=== PATIENT | female | born 2005 | race African-American/Black ===

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

== ENCOUNTER 2025-01-22 10:43 | Outpatient (REF) | payer MEDICAID, SELFPAY ==
--- OUTSIDE RECORDS SUMMARY | 2025-01-22 12:06 | XMS_ITS | Encounter Summary ---
Author Organization [facility] Address [address] [place] [address] Care Team Providers Care Gas Derrick Operator Name Role Phone Ashley Bajwa NP Primary Care Provider [phone] Reason for Visit * Reason Onset Date Comments Chart Prep 01/11/2025 Encounter Details Date Type Department Care Team ([facility] st Contact Info) Description 01/11/2025 Telephone [facility] [address] [place], [place] [phone] Ila Patel MA Chart Prep Social History Tobacco Use Types Packs/Day Years Used Date Smoking Tobacco: Never Smokeless Tobacco: Never Alcohol Use Standard Drinks/Week Comments Never 0 (1 standard drink = 0.6 oz pur e alcohol) Depression Answer Date Recorded Patient Health Questionnaire-9 Score 0 07/29/2023 Depression Answer Date Recorded Patient Health Questionnaire-2 Score 0 07/29/2023 Comments No Sex and Gender Information Value Date Recorded Sex Assigned at Female 09/28/2022 10:19 AM EDT Legal Sex Female 10:19 AM EDT Gender Identity Female 09/28/2022 10:19 AM EDT Sexual Orientation Bisexual 02/10/2024 2: 00 PM EDT documented as of this encounter Miscellaneous Notes * Telephone Encounter - Ila Patel MA - 01/11/2025 1:48 PM EST Chart Prep Labs: done Images: not done Vaccines due: Covid, PCV20, Flu Referrals: none Screenings: STI screening, HIV, Hep C Overdue care gaps: SDOH, PHQ-9, Fluoride documented in this encounter Plan of Treatment Not on file documented as of this encounter Visit Diagnoses Not on filedocumented in this encounter Additional Health Concerns Assessment Noted Time PHQ-9 Depression Total Score: 0 07/29/20 23 5:24 PM EDT documented as of this encounter Care Teams Gas Derrick Operator Relationship Specialty Start Date End Date Ashley Bajwa NP [address] [place] [address] PCP - General Family Medicine 11/15/24 documented as of this encounter
--- OUTSIDE RECORDS SUMMARY | 2025-01-22 12:06 | XMS_ITS | Encounter Summary ---
Author Organization [employer] [facility] Address [address] 7[address] [place] [address] Care Team Providers Care Montessori Teacher Name Role Phone Ashley Bajwa NP Primary Care Provider [phone] Reason for Visit * Reason Comments Pre-visit Planning SDOH unable to reach , number disconnected Encounter Details Date Type Department Care Team ([facility] Contact Info) Description 01/11/2025 Patient Outreach [facility] [address] [place], [place] [phone] Ashley Bajwa, KIRILL [address] [place] [address] Pre-visit Planning (SDOH unable to reach, number disconnected) Social History Tobacco Use Types Packs/Day Years [...] PM EDT documented as of this encounter Progress Notes * Nell Umanzor - 01/11/2025 9:57 AM EST CC Nell Shook placed outbound call to patient to complete pre-visit planning. No answer at this time. Patient name and were not confirmed. CC unable to leave a message due to number not in service documented in this encounter Plan of Treatment Not on file documented as of this encounter Visit Diagnoses Not on filedocumented in this encounter Additional Health Concerns Assessment Noted Time PHQ-9 Depression Total Score: 0 07/29/20 23 5:24 PM EDT documented as of this encounter Care Teams Montessori Teacher Relationship Specialty Start Date End Date Ashley Bajwa NP [address] [place] [id number] PCP - General Family Medicine 11/15/24 documented as of this encounter
--- OUTSIDE RECORDS SUMMARY | 2025-01-22 12:06 | XMS_ITS | Encounter Summary ---
Author Organization [employer] [facility] Address [address] [place] [address] Care Team Providers Care Oracle Analyst Name Role Phone Ashley Bajwa NP Primary Care Provider [phone] Encounter Details Date Type Department Care Team (Latest Contact Info) Description 01/22/2025 Travel Social History Tobacco Use Types Packs/Day Years Used Date Smoking Tobacco: Never Smokeless Tobacco: Never Alcohol Use Standard Drinks/Week Comments Never 0 (1 standard drink = 0.6 oz pur e alcohol) Depression Answer Date Recorded Patient Health Questionnaire-9 Score 0 01/22/2025 Patient Health Questionnaire-9 Score 0 01/22/2025 Last PHQ-9: Questionnaire Data Not on file 0 01/22/2025 Housing Stability Answer Date Recorded What is your housing situation today? I have zeus [place] 01/22/[address] you li ve. Do you have problems with any of the following? None of the above 01/22/2025 Food Insecurity Answer Date Recorded Within the past 12 months, y ou worried that your food would run out before you got money to buy more: Never True 01/22/2025 Within the past 12 months,th e food you bought just didn't last and you didn't have enough money to get more: Never True Transportation Answer Date Recorded In the past 12 months, has l ack of transportation kept you from medical appts, meetings, work or from getting things needed for daily living? No 01/22/2025 Utilities Answer Date Recorded In the past 12 months, has t he electric, gas, oil or water company threatened to shut off services in your home? No 01/22/2025 Depression Answer Date Recorded Patient Health Questionnaire-2 Score 0 01/22/2025 Internet Access Answer Date Recorded Internet Access Q1 No 01/22/2025 Internet Access Q2 Internet/Wi-Fi access is not available where I live 01/22/2025 Comments No Sex and Gender Information Value Date Recorded Sex Assigned at Female 09/28/2022 10:19 AM EDT Legal Sex Female 10:19 AM EDT Gender Identity Female 09/28/2022 10:19 AM EDT Sexual Orientation Bisexual 02/10/2024 2: 00 PM EDT documented as of this encounter Plan of Treatment Not on file documented as of this encounter Visit Diagnoses Not on filedocumented in this encounter Additional Health Concerns Assessment Noted Time PHQ-9 Depression Total Score: 0 01/22/20 25 10:41 AM EST documented as of this encounter Care Teams Oracle Analyst Relationship Specialty Start Date End Date Ashley Bajwa NP [address] [place] [address] PCP - General Family Medicine 11/15/24 documented as of this encounter
--- OUTSIDE RECORDS SUMMARY | 2025-01-22 12:06 | XMS_ITS | Encounter Summary ---
Author Organization [facility] Address [address] [place] [address] 7t [place] [address] Care Team Providers Care Aircraft Mechanic Structures Name Role Phone Ashley Bajwa NP Primary Care Provider [phone] Reason for Referral * Consultation (Routine) - Pending Review Specialty Diagnoses / Procedures Referred By Angel thornton Referred To Contact Allergy Diagnoses Tree nut allergy Ashley Bajwa NP [address] [place] [address] Phone: tel: fax: Referral ID Status Reason Start Date Expiration Date Visits Requested Visits Authorized [id number] Pending Review Specialty Services Required 01/22/2025 01/22/2026 1 1 Reason for Visit * Reason Comments Transfer Pt Encounter Details Date Type Department Care Team ([facility] st Contact Info) Description 01/22/2025 9:45 AM EST Office Visit [facility] [address] [place], [place] [phone] Ashley Bajwa NP [address] [place] [address] Exercise-induced asthma (Primary Dx); Healthcare maintenance; Nausea and vomiting, unspecified vomiting type; Exposure to communicable disease; Peanut allergy; Hypovitaminosis D; Tree nut allergy; Dietary counseling; Exercise counseling Social History Tobacco Use Types Packs/Day Years [...] PM EDT documented as of this encounter Last Filed Vital Signs Vital Sign Reading Time Taken Comments Blood Pressure 129/79 01/22/2025 9:52 AM EST Pulse 109 01/22/2025 9:52 AM EST Temperature 36.7 ??C (98 ??F) 01/22/2025 9:52 AM EST Respiratory Rate 16 01/22/2025 9:52 AM EST Oxygen Saturation 99% 01/22/2025 9:52 AM EST Inhaled Oxygen Concentration - - Weight 77.3 kg (170 lb 6.4 oz) 01/22/2025 9:52 A M EST Height - - Body Mass Index 33.28 03/23/2024 11:12 AM EDT documented in this encounter Progress Notes * Ashley Bajwa, JOINER - 01/22/2025 9:45 AM EST Subjective: Karla Tejada is a 19 y.o. female who presents to the office for a transfer patient visit. 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 No pertinent surgical history. No family history on file. 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 Allergies Allergen Reactions Peanut Allergen Powder-Dnfp Angioedema Review of Systems Constitutional: Negative for activity change and appetite change. Respiratory: Negative for apnea, chest tightness and shortness of breath. Gastrointestinal: Positive for nausea and vomiting. Negative for abdominal pain, anal bleeding, blood in stool and constipation. Genitourinary: Negative for frequency and genital sores. Musculoskeletal: Negative for arthralgias. Psychiatric/Behavioral: Negative for agitation. Vitals: 01/22/25 0952 BP: 129/79 Pulse: 109 Resp: 16 Temp: 98 ??F (36.7 ??C) TempSrc: Oral SpO2: 99% Weight: 170 lb 6.4 oz (77.3 kg) Physical Exam Vitals reviewed. Constitutional: Appearance: She is obese. HENT: Head: Normocephalic and atraumatic. Nose: Nose normal. Eyes: Conjunctiva/sclera: Conjunctivae normal. Cardiovascular: Rate and Rhythm: Normal rate and regular rhythm. Pulmonary: Effort: Pulmonary effort is normal. Breath sounds: Normal breath sounds. Abdominal: Palpations: Abdomen is soft. Musculoskeletal: Cervical back: Normal range of motion and neck supple. Neurological: General: No focal deficit present. Mental Status: She is alert. Problem List Items Addressed This Visit Exercise-induced asthma - Primary Current Assessment & Plan Stable, bhavesh renewed Relevant Medications albuterol 108 (90 Base) MCG/ACT inhaler Peanut allergy Relevant Medications EPINEPHrine (Epipen) 0.3 MG/0.3ML injection syringe Healthcare maintenance Relevant Orders Chlamydia/N. Gonorrhoeae RNA, TMA, Urogenitial Nausea and vomiting Current Assessment & Plan Celiac panel ordered Unclear etiology, prn zofran in interim, no consitutional or lower gi symptoms associated with these symptoms If no improvement consider GI referral Possibly secondary to nexplanon, though rare side effect if so Software Intern called for their opinion Relevant Medications ondansetron (Zofran) 8 MG tablet Other Relevant Orders Celiac Disease Comprehensive Panel Exposure to communicable disease Relevant Orders HIV-1/2 Antigen and Antibodies, Fourth Generation, with Reflexes Hepatitis C Antibody with Reflex to HCV, RNA, Quantitative, Real-Time PCR RPR (Monitor) with Reflex to Titer Hypovitaminosis D Relevant Medications cholecalciferol (Vitamin D-3) 125 MCG (5000 UT) capsule Tree nut allergy Current Assessment & Plan Referral to allergy Relevant Orders Referral to Allergy Other Visit Diagnoses Dietary counseling Exercise counseling Routine Screening and Health Maintenance Current Outpatient Medications Medication Sig Dispense Refill albuterol (2.5 MG/3ML) 0.083% nebulizer solution Take 3 mL (2.5 mg) by nebulization every 6 (six) hours if needed for wheezing. 75 mL 11 albuterol 108 (90 Base) MCG/ACT inhaler 2 puff by inhalation route every 4 to 6 hours prn shortnessof breath or wheezing 36 g 1 cholecalciferol (Vitamin D-3) 125 MCG (5000 UT) capsule 1 caps po once a day 90 capsule 1 EPINEPHrine (Epipen) 0.3 MG/0.3ML injection syringe use as directed for allergic reaction to peanuts 2 each 1 ibuprofen 200 MG tablet 1 tablet by oral route 4 times per day prn pain ondansetron (Zofran) 8 MG tablet Take 1 tablet (8 mg) by mouth every 12 (twelve) hours if needed for nausea or vomiting for up to 15 days. 30 tablet 0 Spacer/Aero-Holding Chambers (AeroChamber MV) inhaler Use as instructed for albuterol therapy 2 each 1 No current facility-administered medications for this visit. Immunization History Administered Date(s) Administered DT (pediatric) 05/11/2007 DTaP 2005, 02/02/2006, 05/11/2007, 03/13/2010 DTaP / Hep B / IPV 2005, 02/02/2006, 05/13/2006 HPV 9-Valent 06/26/2016, 02/22/2017 Hep A, Unspecified 05/11/2007 Hep A, ped/adol, 2 dose 05/11/2007, 03/13/2010 Hep B, Adolescent or Pediatric 2005, 2005, 02/02/2006 Hep B, Unspecified 2005 HiB, unspecified 2005, 02/02/2006, 05/13/2006, 05/11/2007 IPV 2005, 02/02/2006, 03/13/2010 Influenza injectable quadrivalent preservative free 10/13/2006, 07/19/2012, 01/13/2017 Influenza, IIV3, injectable 10/13/2006 MMR 10/13/2006, 03/13/2010 Meningococcal MCV4P ACYW-135 02/22/2017, 06/23/2022 Pfizer Covid-19 Vaccine 12+ 11/25/2021 Pfizer Covid-19 Vaccine 12+ avery-sucrose (Vasquez Cap) 12/30/2021 Pneumococcal Conjugate PCV 13 2005, 02/02/2006, 05/13/2006, 05/11/2007 Pneumococcal Conjugate PCV 7 2005, 02/02/2006, 05/13/2006, 05/11/2007 Tdap 02/22/2017 Varicella 10/13/2006, 03/13/2010 Yellow Fever 2005 documented in this encounter Miscellaneous Notes * Assessment & Plan Note - Ashley Bajwa NP - 01/22/2025 10:46 AM ESTAssociated Problem(s): Tree nut allergy Referral to allergy * Assessment & Plan Note - Ashley Bajwa NP - 01/22/2025 10:46 AM ESTAssociated Problem(s): Nausea and vomiting Celiac panel ordered Unclear etiology, prn zofran in interim, no consitutional or lower gi symptoms associated with these symptoms If no improvement consider GI referral Possibly secondary to nexplanon, though rare side effect if so Software Intern called for their opinion * Assessment & Plan Note - Ashley Bajwa NP - 01/22/2025 10:44 AM ESTAssociated Problem(s): Exercise-induced asthma bhavesh العلي renewed documented in this encounter Plan of Treatment Scheduled Orders Name Type Priority Associated Diagnoses Orde r Schedule Chlamydia/N. Gonorrhoeae RNA, TMA, Urogenitial Microbiology Routine Healthcare maintenance Ordered: 01/22/2025 Celiac Disease Comprehensive Panel Lab Routine Nausea and vomiting, unspecified vomiting type Expected: 01/22/2025, Expires: 01/22/2026 HIV-1/2 Antigen and Antibodies, Fourth Generation, with Reflexes Lab Routine Exposure to communicable disease Expected: 01/22/2025 (Approximate), Expires: 01/22/2026 Hepatitis C Antibody with Reflex to HCV, RNA, Quantitative, Real-Time PCR Lab Routine Exposure to communicable disease Expected: 01/22/2025, Expires: 01/22/2026 RPR (Monitor) with Reflex to??Titer Lab Routine Exposure to communicable disease Expected: 01/22/2025, Expires: 01/22/2026 Scheduled Referrals Name Type Priority Associated Diagnoses Orde r Schedule Referral to Allergy Outpatient Referral Routine Tree nut allergy Expected: 01/22/2025 (Approximate), Expires: 01/22/2026 documented as of this encounter Visit Diagnoses Diagnosis Exercise-induced asthma- Primary Exercise induced bronchospasm Healthcare maintenance Nausea and vomiting, unspecified vomiting type Exposure to communicable disease Contact with or exposure to unspecified communicable disease Peanut allergy Hypovitaminosis D Unspecified vitamin D deficiency Tree nut allergy Dietary counseling Dietary surveillance and counseling Exercise counseling documented in this encounter Additional Health Concerns Assessment Noted Time PHQ-9 Depression Total Score: 0 01/22/20 25 10:41 AM EST documented as of this encounter Care Teams Aircraft Mechanic Structures Relationship Specialty Start Date End Date Ashley Bajwa NP [address] [place] [id number] PCP - General Family Medicine 11/15/24 documented as of this encounter
--- OUTSIDE RECORDS SUMMARY | 2025-01-22 12:06 | XMS_ITS | Clinical Summary ---
Author Organization [employer] Address [address] [facility] 7[address] [place] [address] Care Team Providers Care Communications Advisor Name Role Phone Ashley Bajwa NP Primary Care Provider [phone] Allergies Active Allergy Reactions Criticality Noted Date Comments Peanut Allergen Powder-Dnfp Angioedema 07/29/20 23 Medications ibuprofen 200 MG tablet 1 tablet by oral route 4 times per day prn pain 06/20/20 20 Active Spacer/Aero-Ho lding Chambers (AeroChamber MV) inhalerIndicat ions:Exercise- induced asthma Use as instructed for albuterol therapy 2 each 1 07/29/20 23 Active ondansetron (Zofran) 8 MG tabletIndicati ons:Nausea and vomiting, unspecified vomiting type Take 1 tablet (8 mg) by mouth every 12 (twelve) hours if needed for nausea or vomiting for up to 15 days. 30 tablet 01/22/20 25 2024 Active EPINEPHrine (Epipen) 0.3 MG/0.3ML injection syringeIndicat ions:Peanut allergy use as directed for allergic reaction to peanuts 2 each 1 01/22/20 25 Active cholecalcifero l (Vitamin D-3) 125 MCG (5000 UT) capsuleIndicat ions:Hypovitam inosis D 1 caps po once a day 90 capsule 01/22/20 25 Active albuterol (2.5 MG/3ML) 0.083% nebulizer solution Take 3 mL (2.5 mg) by nebulization every 6 (six) hours if needed for wheezing. 75 mL 11 01/22/20 25 2025 Active albuterol 108 (90 Base) MCG/ACT inhalerIndicat ions:Exercise- induced asthma 2 puff by inhalation route every 4 to 6 hours prn shortness of breath or wheezing 36 g 1 01/22/20 25 Active albuterol 108 (90 Base) MCG/ACT inhalerIndicat ions:Exercise- induced asthma 2 puff by inhalation route every 4 to 6 hours prn shortness of breath or wheezing 36 g 1 07/29/20 23 2024 Discontinued(R eorder (will not trigger notification to Pharmacy)) EPINEPHrine (Epipen) 0.3 MG/0.3ML injection syringeIndicat ions:Peanut allergy use as directed for allergic reaction to peanuts 2 each 1 07/29/20 23 2024 Discontinued(R eorder (will not trigger notification to Pharmacy)) cholecalcifero l (Vitamin D-3) 125 MCG (5000 UT) capsuleIndicat ions:Hypovitam inosis D 1 caps po once a day 90 capsule 1 08/05/20 23 2024 Discontinued(R eorder (will not trigger notification to Pharmacy)) Active Problems Problem Noted Date Diagnosed Date Healthcare maintenance 01/22/2025 Nausea and vomiting 01/22/2025 Assessment & Plan (01/22/2025 10:46 AM EST): Celiac panel ordered Unclear etiology, prn zofran in interim, no consitutional or lower gi symptoms associated with these symptoms If no improvement consider GI referral Possibly secondary to nexplanon, though rare side effect if so Change Attendant called for their opinion Exposure to communicable disease 01/22/2025 Hypovitaminosis D 01/22/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 Assessment & Plan (01/22/2025 10:46 AM EST): Referral to allergy Vitamin D deficiency 07/29/2023 Peanut allergy 07/29/2023 Exercise-induced asthma 01/13/2017 Assessment & Plan (01/22/2025 10:44 AM EST): Stable, bhavesh renewed Resolved Problems Problem Noted Date Diagnosed Date Resolved Date Depressive disorder 07/29/2023 07/29/20 23 Encounters Date Type Department Care Team Description 01/22/2025 9:45 AM EST Office Visit [facility] MED[facility] [address] [place] [address] Ashley Bajwa NP Exercise-induced asthma (Primary Dx); Healthcare maintenance; Nausea and vomiting, unspecified vomiting type; Exposure to communicable disease; Peanut allergy; Hypovitaminosis D; Tree nut allergy; Dietary counseling; Exercise counseling 01/22/2025 Travel 01/11/2025 Telephone [facility] MEDICINE [address] [place] [address] Ila Patel MA Chart Prep 01/11/2025 Patient Outreach [facility] PEDS [address] [place] [address] Ashley Bajwa NP Pre-visit Planning ([facility] unable to reach, number disconnected) 11/15/2024 Telephone [facility] PEDIATRICS [address] [place] [address] Aimee Nuñez MA from Last 3 Months Immunizations Name Administration Dates Next Due DT (pediatric) 05/11/2007 DTaP 03/13/2010, 7,02/02/2006,11/12 DTaP / Hep B / IPV 05/13/2006,02/02/2006, 005 HPV 9-Valent 02/22/2017,06/26/2016 Hep A, Unspecified 05/11/2007 Hep A, ped/adol, 2 dose 03/13/2010,05/11/2007 Hep B, Adolescent or Pediatric 02/02/2006,2004,2005 Hep B, Unspecified 2005 HiB, unspecified 05/11/2007, 6,02/02/2006,11/12 IPV 03/13/2010,02/02/2006,2005 Influenza injectable quadriv alent preservative free 01/13/2017,07/19/2012,10/13/2006 Influenza, IIV3, injectable 10/13/2006 MMR 03/13/2010,10/13/2006 Meningococcal MCV4P ACYW-135 06/23/2022,02/23/20 17 Pneumococcal Conjugate PCV 13 05/11/2007 ,05/13/2006,02/02/2006,11/12 Pneumococcal Conjugate PCV 7 05/11/2007, 05/13/2006,02/02/2006,11/12 Tdap 02/22/2017 Varicella 03/13/2010,10/13/2006 Yellow Fever 2005 Social History Tobacco Use Types Packs/Day Years Used Date Smoking Tobacco: Never Smokeless Tobacco: Never Tobacco Cessation:Counseling Given: No Alcohol Use Standard Drinks/Week Comments Never 0 [...] Orientation Bisexual 02/10/2024 2: 00 PM EDT Last Filed Vital Signs Vital Sign Reading [...] oz) 01/22/2025 9:52 A M EST Height 152.4 cm (5') 03/23/2024 11:12 AM EDT Body Mass Index 33.28 03/23/2024 11:12 AM EDT Plan of Treatment Health Maintenance Due Date Last Done Comments HIV Screening 2005 Fluoride Varnish 05/09/2006 Pneumococcal Vaccine: Pediatrics (0 to 5 Years) and At-Risk Patients (6 to 49) Years) (1 of 1 - PPSV23) 2011 05/11/2007, 05/11/2007, 05/13/2006, Additional history exists Alcohol/Substance Use Screening 2017 Hepatitis C Screening 2023 COVID-19 Vaccine ( season) 2024 12/30/2021, 11/25/2021 Influenza Vaccine (#1) 2024 7, 07/19/2012, 10/13/2006, Additional history exists Chlamydia and Gonorrhea Screening 02/09/2025 02/10/2024, 02/07/2024 Family Planning (PISQ) 02/09/2025 02/10/2024 Depression Screening 01/22/2026 01/22/2025, 01/22/20 25 SDOH Screening 01/22/2026 01/22/2025 Tobacco Screening 01/22/2026 01/22/2025 DTaP/Tdap/Td Vaccines (7 - Td or Tdap) 02/22/2027 02/22/2017, 03/13/2010, 05/11/2007, Additional history exists Zoster Vaccines (1 of 2) 2055 RSV Patients and Patients Aged 60 years or older (1 - 1-dose 75+ series) 2080 Hepatitis B Vaccines Completed 05/13/2006, 02/02/2006, 02/02/2006, Additional history exists HIB Vaccines Completed 05/11/2007, 04/29, 02/02/2006, Additional history exists Hepatitis A Vaccines Completed 03/13/2010, 03/13/2010, 05/11/2007, Additional history exists IPV Vaccines Completed 03/13/2010, 04/29, 02/02/2006, Additional history exists MMR Vaccines Completed 03/13/2010, 10/13/2006 Varicella Vaccines Completed 03/13/2010, 10/13/2006 HPV Vaccines Completed 02/22/2017, 06/26/2016 Meningococcal Vaccine Completed 06/23/2022, 017 RSV under 20 months Aged Out No longe r eligible based on patient's age to complete this topic Rotavirus Vaccines Aged Out No longer eligible based on patient's age to complete this topic Procedures Procedure Name Priority Date/Time Associated Diagnosis Comments CHLAMYDIA/N. GONORRHOEAE RNA, TMA, UROGENITAL Routine 02/10/2024 1:53 PM EDT Nexplanon insertion from Last 3 Months or Most Recently Relevant to Health Maintenance Results * Chlamydia/N. Gonorrhoeae RNA, TMA, Urogenitial (02/10/2024 1:53 PM EDT) CT PCR NOT DETECTED Not Detect. [facility] Comment:A not detected test result does not exclude the possibilityof infection because test results can be affected byimproper specimen collection, concurrent antibiotic therapy,or the number of organisms in the specimen which may bebelow the sensitivity of the test. As with many diagnostictests, results from the Xpert CT/NG assay should beinterpreted in conjunction with other laboratory andclinical data available to the clinician.Xpert CT/NG performance has not been evaluated in patientsless than 14 years of age. The assay should not be used forthe evaluationof suspected sexual abuse or for other medico-legalindications. Additional testing is recommended in anycircumstance when false positive or false negative resultscould lead to adverse medical, social or psychologicalconsequences. NG PCR NOT DETECTED Not Detect. [facility] Comment:A not detected test result does not exclude the possibilityof infection because test results can be affected byimproper specimen collection, concurrent antibiotic therapy,or the number of organisms in the specimen which may bebelow the sensitivity of the test. As with many diagnostictests, results from the Xpert CT/NG assay should beinterpreted in conjunction with other laboratory andclinical data available to the clinician.Xpert CT/NG performance has not been evaluated in patientsless than 14 years of age. The assay should not be used forthe evaluationof suspected sexual abuse or for other medico-legalindications. Additional testing is recommended in anycircumstance when false positive or false negative resultscould lead to adverse medical, social or psychologicalconsequences. Urine (Urine, Random) 02/10/2024 1:53 PM EDT 02/10/2024 5:55 PM EDT Narrative [facility] - 02/11/2024 12:06 PM EDT Urine us Katerina Moseley MD LAB MICROBIOLOGY - GENERAL ORDERABLES Final Result Performing Organization Address City/State/[facility] Co de Phone Number [facility] [address] [place] [phone] from Last 3 Months or Most Recently Relevant to Health Maintenance Insurance [employer] Care Teams Communications Advisor Relationship Specialty Start Date End Date Ashley Bajwa NP [address] [place] [id number] PCP - General Family Medicine 11/15/24
--- OUTSIDE RECORDS SUMMARY | 2025-01-22 12:07 | XMS_ITS | Encounter Summary ---
Author Organization Note [facility] Address [address] [facility] 7t [place] [address] Care Team Providers Care [employer] Lead Name Role Phone Marcella Montilla MD Primary Care Provider [phone] Ashley Bajwa NP Primary Care Provider [phone] Encounter Details Date Type Department Care Team (Late st Contact Info) Description 02/17/2024 Orders Only [facility] [address] [place], [place] [phone] Marcella Montilla MD [address] [place], [place] [phone] Right hip pain (Primary Dx) Social History Tobacco Use Types Packs/Day Years [...] as of this encounter Plan of Treatment Scheduled Orders Name Type Priority Associated Diagnoses Orde r Schedule XR Pelvis 3+ Views Imaging Routine Right hip pain Expected: 02/17/2024, Expires: 02/16/2025 documented as of this encounter Visit Diagnoses Diagnosis Right hip pain- Primary Pain in joint, pelvic region and thigh documented in this encounter Additional Health Concerns Assessment Noted Time PHQ-9 Depression Total Score: 0 07/29/20 23 5:24 PM EDT documented as of this encounter Care Teams [employer] Lead Relationship Specialty Start Date End Date Marcella Montilla MD [address] [place] [address] PCP - General Pediatrics 12/24/16 11/14/24 Ashley Bajwa NP [address] [place] [address] PCP - General Family Medicine 11/15/24 documented as of this encounter
--- OUTSIDE RECORDS SUMMARY | 2025-01-22 12:07 | XMS_ITS | Encounter Summary ---
Author Organization [employer] [facility] Address [address] [place] [address] 7t [place] [address] Care Team Providers Care New Car Make Ready Mechanic Name Role Phone Marcella Montilla MD Primary Care Provider [phone] Ashley Bajwa NP Primary Care Provider [phone] Reason for Visit * Reason Onset Date Comments Appointment Request 01/26/2024 Encounter Details Date Type Department Care Team ([facility] st Contact Info) Description 01/26/2024 Telephone [facility] MEDICINE [address] [place], [place] [phone] Marcella Montilla MD [address] [place], [place] [phone] Appointment Request Social History Tobacco Use Types Packs/Day Years Used Date Smoking Tobacco: Never Smokeless Tobacco: Never Alcohol Use Standard Drinks/Week Comments Never 0 (1 standard drink = 0.6 oz pur e alcohol) Depression Answer Date Recorded Patient Health Questionnaire-9 Score 0 07/29/2023 Depression Answer Date Recorded Patient Health Questionnaire-2 Score 0 07/29/2023 Comments Unknown Sex and Gender Information Value Date Recorded Sex Assigned at Female 09/28/2022 10:19 AM EDT Legal Sex Female 10:19 AM EDT Gender Identity Female 09/28/2022 10:19 AM EDT Sexual Orientation Bisexual 02/10/2024 2: 00 PM EDT documented as of this encounter Miscellaneous Notes * Telephone Encounter - Cassi Josué - 01/26/2024 10:59 AM EST Tc from pt mom requesting appt with PCP to discuss control, please contact at [phone]. documented in this encounter Plan of Treatment Not on file documented as of this encounter Visit Diagnoses Not on filedocumented in this encounter Additional Health Concerns Assessment Noted Time PHQ-9 Depression Total Score: 0 07/29/20 23 5:24 PM EDT documented as of this encounter Care Teams New Car Make Ready Mechanic Relationship Specialty Start Date End Date Marcella Montilla MD [address] [place] [address] PCP - General Pediatrics 12/24/16 11/14/24 Ashley Bajwa NP [address] [place] [address] PCP - General Family Medicine 11/15/24 documented as of this encounter
--- OUTSIDE RECORDS SUMMARY | 2025-01-22 12:07 | XMS_ITS | Encounter Summary ---
Author Organization [employer] [facility] Address [address] [facility] [address] [place] [address] Care Team Providers Care Ground Wood Supervisor Name Role Phone Marcella Montilla MD Primary Care Provider [phone] Ashley Bajwa NP Primary Care Provider [phone] Reason for Visit * Reason Comments Med Change Request Encounter Details Date Type Department Care Team ([facility] st Contact Info) Description 08/05/2023 Refill [facility] [address] [place], [place] [phone] Marcella Montilla MD [address] [place], [place] [phone] Hypovitaminosis D Social History Tobacco Use Types Packs/Day Years [...] encounter Miscellaneous Notes * Telephone Encounter - Stacey Juarez RN - 08/05/2023 2:58 PM EDT Telephone call to parent and advised mom of message. Mom also requesting Medication Form for Epipenand Albuterol for school.Advised mom will forward message to Dr. Montilla, mom verbalizes understanding. * Telephone Encounter - Stacey Juarez RN - 08/05/2023 2:54 PM EDT ----- Message from Marcella Montilla MD sent at 08/05/2023 2:19 PM EDT ----- Labs reviewed, WNL, except for low vit D. Rx for vit D was sent to the pharmacy on file. Also, please check with mom about the meningitis Bexsero vaccine for college , if they decided to have it. F/uin 6 mo or sooner if problems or concerns. documented in this encounter Plan of Treatment Not on file documented as of this encounter Visit Diagnoses Diagnosis Hypovitaminosis D Unspecified vitamin D deficiency documented in this encounter Additional Health Concerns Assessment Noted Time PHQ-9 Depression Total Score: 0 07/29/20 23 5:24 PM EDT documented as of this encounter Care Teams Ground Wood Supervisor Relationship Specialty Start Date End Date Marcella Montilla MD [address] [place] [address] PCP - General Pediatrics 12/24/16 11/14/24 Ashley Bajwa NP [address] [place] [address] PCP - General Family Medicine 11/15/24 documented as of this encounter
[2025-01-22 12:18] LABS: HIV AB/AG Nonreactive (Nonreactive); HIV Num 1 0.06 S/CO (0.00-0.99); ~HepC Num1 0.11 S/CO (0.00-0.79); ~Hepatitis C Antibody Nonreactive (Nonreactive)
[2025-01-23 12:43] LABS: RPR Rapid Plasma Reagin NON-REACTIVE (NON-REACTIVE)
[2025-01-23 14:27] LABS: CT PCR NOT DETECTED (Not Detect.); NG PCR NOT DETECTED (Not Detect.)
[2025-01-23 20:38] LABS: Immunoglobulin A 193 mg/dL (47-310); Transglutaminase IgA <1.0 U/mL
== END 2025-01-22 10:44 | disposition home or self-care (01) ==
LOC: HO.HHCLNP 10:43
PROVIDERS: Visit Provider Nurse Practitioner Family
DX: Z00.00 Encounter for general adult medical examination without abnormal findings (principal); Z20.9 Contact with and (suspected) exposure to unspecified communicable disease; R11.2 Nausea with vomiting, unspecified
CPT/HCPCS: 36415; 82784; 86364; 86592; 86803; 87389; 87491; 87591